=== PATIENT | male | born 1940 | race Caucasian/White ===

== ENCOUNTER 2025-02-12 00:59 | Inpatient (IN) | payer MEDICARE ==
[~2025-02-12] VITALS: Ht 177.8 cm; Wt 75.0 kg
[2025-02-12] VITALS (7 sets, daily range): BP systolic 99–151; BP diastolic 44–75
[2025-02-12 01:27] LABS: BASO # 0.0 10*3/uL (0.0-0.1); BASO % 0.2 % (0.0-1.0); EOS # 0.0 10*3/uL (0.0-0.4); EOS % 0.0 % (1.0-4.0); MEAN CELL VOLUME 97.6 fl (80.0-94.0); MEAN CORPUSCULAR HGB 30.9 pg (27.0-31.0); MEAN PLATELET VOLUME 7.9 fl (9.6-12.3); MONO # 1.3 10*3/uL (0.1-1.0); MONO % 7.0 % (3.0-9.0); NEUT # 15.5 10*3/uL (2.3-7.9); NEUT % 81.5 % (47.0-73.0); NUCLEATED RED BLOOD CELL 0.0 % (0.0-0.0); NUCLEATED RED BLOOD CELL 0.0 10*3/uL (0.0-0.0); PLATELET COUNT AUTOMATED 281 10*3/uL (130-400); RED CELL DISTRI WIDTH 13.3 % (0-14.5)
[2025-02-12 02:09] LABS: BUN 66 mg/dl (9-23); SGPT/ALT 26 U/L (5-49)
[2025-02-12 02:17] LABS: ETHYL ALCOHOL < 3.0 mg/dl (<3)
[2025-02-12] MEDS ORDERED: SODIUM CHLORIDE 0.9% 1,000 ML IV ONE ×2 (02:40→02:45)
[2025-02-12] MEDS ORDERED: Lidocaine Hydrochloride 10 ML SYR UR ONE ×2 (02:55→06:40)
[2025-02-12] MEDS ORDERED: AFRIN 15 ML15 M1 NAS (02:58)
[2025-02-12] MEDS ORDERED: ALLOPURINOL300 MG PO (02:58)
[2025-02-12] MEDS ORDERED: 'XANAX0.5 MG PO (02:59)
[2025-02-12] MEDS ORDERED: XANAX0.25 MG PO (02:59)
[2025-02-12] MEDS ORDERED: AMMONIUM LACTA227 GM T (03:00)
[2025-02-12] MEDS ORDERED: ASPIRIN81 M3 PO (03:01)
[2025-02-12] MEDS ORDERED: ARTIFICIAL TEAR1513 OP (03:01)
[2025-02-12] MEDS ORDERED: ANTIBIOTIC28.4 GM T (03:02)
[2025-02-12] MEDS ORDERED: BIOFREEZE89 ML T (03:03)
[2025-02-12] MEDS ORDERED: CALQUENCE100 M1 PO (03:04)
[2025-02-12] MEDS ORDERED: CALCIUM ANTACI300 MG PO (03:04)
[2025-02-12] MEDS ORDERED: ELIQUIS5 M1 PO (03:05)
[2025-02-12] MEDS ORDERED: CLOBETASOL PROP15 GM T (03:05)
[2025-02-12] MEDS ORDERED: FERROUS SULFAT324 M2 PO (03:07)
[2025-02-12] MEDS ORDERED: GLIPIZIDE2.5 M1 PO (03:08)
[2025-02-12] MEDS ORDERED: HYDROCORTISON28.4 G5 T (03:09)
[2025-02-12] MEDS ORDERED: MEMANTINE HCL10 MG PO (03:11)
[2025-02-12] MEDS ORDERED: ANTI-DIARRHEAL2 MG PO (03:11)
[2025-02-12] MEDS ORDERED: METFORMIN HCL1000 M1 PO (03:12)
[2025-02-12] MEDS ORDERED: MULTIVITAMIN1 EACH PO (03:13)
[2025-02-12] MEDS ORDERED: MUCINEX DM 30/61 TAB PO (03:13)
[2025-02-12] MEDS ORDERED: PRAZOSIN HCL1 MG PO (03:14)
[2025-02-12] MEDS ORDERED: RIVASTIGMINE TAR6 M1 PO (03:15)
[2025-02-12] MEDS ORDERED: Acetaminophen/Hydrocodone 5 MG/325 MG TABLET PO PRN (04:25)
[2025-02-12] MEDS ORDERED: Ondansetron Hydrochloride 4 MG/2 ML VIAL IV PRN (04:25)
[2025-02-12] MEDS ORDERED: BISACODYL 5 MG TAB PO PRN (04:25)
[2025-02-12] MEDS ORDERED: BISACODYL 10 MG SUPP R PRN (04:25)
[2025-02-12] MEDS ORDERED: ACETAMINOPHEN 650 MG SUPP R PRN (04:25)
[2025-02-12] MEDS ORDERED: ACETAMINOPHEN 325 MG TAB PO PRN (04:25)
[2025-02-12] MEDS ORDERED: SODIUM CHLORIDE 0.9% 1,000 ML IV SCH ×2 (04:30→06:55)
[2025-02-12 05:29] LABS: BUN 65.0 mg/dl (9-23); FREE T4 1.14 ng/dl (0.89-1.76); LDL CHOLESTEROL 49.0 mg/dL (9-159); SGPT/ALT 21.0 U/L (5-49)
[2025-02-12 06:25] LABS: BASO # 0.1 10*3/uL (0.0-0.1); BASO % 0.3 % (0.0-1.0); EOS # 0.0 10*3/uL (0.0-0.4); EOS % 0.1 % (1.0-4.0); MEAN CELL VOLUME 97.7 fl (80.0-94.0); MEAN CORPUSCULAR HGB 31.2 pg (27.0-31.0); MEAN PLATELET VOLUME 8.8 fl (9.6-12.3); MONO # 1.2 10*3/uL (0.1-1.0); MONO % 7.8 % (3.0-9.0); NEUT # 11.3 10*3/uL (2.3-7.9); NEUT % 74.3 % (47.0-73.0); NUCLEATED RED BLOOD CELL 0.0 % (0.0-0.0); NUCLEATED RED BLOOD CELL 0.0 10*3/uL (0.0-0.0); PLATELET COUNT AUTOMATED 288 10*3/uL (130-400); RED CELL DISTRI WIDTH 13.4 % (0-14.5)
[2025-02-12 07:01] LABS: VITAMIN D, 25-HYDROXY 39.2 ng/mL (30-100)
[2025-02-12 07:16] LABS: BILIRUBIN Negative (Negative); BLOOD Trace-Lysed (Negative); CLARITY Clear (Clear); COLOR Yellow (Yellow); KETONE Trace (Negative); LEUKO ESTERASE 1+ (Negative); NITRITE Negative (Negative); PH 5.0 (4.5-8.0); SPECIFIC GRAVITY 1.015 (1.001-1.030); UROBILINOGEN 0.2 E.U./dl (0.0-1.0)
[2025-02-12 07:18] LABS: URINE AMPHETAMINES Negative (1000ng/ml); URINE BARBITURATES Negative (200ng/ml); URINE BENZODIAZEPINES Positive (200ng/ml); URINE CANNABINOIDS (THC) Negative (50ng/ml); URINE COCAINE Negative (300ng/ml); URINE METHADONE Negative (300ng/ml); URINE OPIATES Negative (300ng/ml); URINE PHENCYCLIDINE Negative (25ng/ml)
[2025-02-12 07:41] LABS: BACTERIA 1+
[2025-02-12] MEDS ORDERED: ALPRAZolam 0.25 MG TAB PO SCH (10:00)
[2025-02-12] MEDS ORDERED: ASPIRIN ENTERIC COATED 81 MG TAB PO SCH (10:00)
[2025-02-12] MEDS ORDERED: APIXABAN 2.5 MG TABLET PO SCH (10:00)
[2025-02-12] MEDS ORDERED: FOAM BANDAGE 1 EACH BANDAGE T ONE (13:37)
[2025-02-12] MEDS ORDERED: FOAM BANDAGE 5X5 T ONE (13:37)
[2025-02-13] VITALS (7 sets, daily range): BP systolic 68–157; BP diastolic 44–79
[2025-02-13 06:13] LABS: BASO # 0.1 10*3/uL (0.0-0.1); BASO % 0.6 % (0.0-1.0); EOS # 0.1 10*3/uL (0.0-0.4); EOS % 0.8 % (1.0-4.0); MEAN CELL VOLUME 95.7 fl (80.0-94.0); MEAN CORPUSCULAR HGB 31.1 pg (27.0-31.0); MEAN PLATELET VOLUME 8.7 fl (9.6-12.3); MONO # 0.8 10*3/uL (0.1-1.0); MONO % 7.0 % (3.0-9.0); NEUT # 8.4 10*3/uL (2.3-7.9); NEUT % 70.9 % (47.0-73.0); NUCLEATED RED BLOOD CELL 0.0 % (0.0-0.0); NUCLEATED RED BLOOD CELL 0.0 10*3/uL (0.0-0.0); PLATELET COUNT AUTOMATED 276 10*3/uL (130-400); RED CELL DISTRI WIDTH 13.6 % (0-14.5)
[2025-02-13 06:43] LABS: BUN 53.0 mg/dl (9-23)
[2025-02-13] MEDS ORDERED: diazePAM 5 MG TAB PO SCH (09:35)
[2025-02-13] MEDS ORDERED: SODIUM CHLORIDE 0.9% 1,000 ML IV ONE (10:30)
[2025-02-13] MEDS ORDERED: SODIUM CHLORIDE 0.9% 1,000 ML IV SCH (10:30)
[2025-02-14] VITALS: BP 119/71
[2025-02-14] MEDS ORDERED: diazePAM 10 MG/2 ML SYR IV ONE (04:00)
[2025-02-14 05:58] LABS: BUN 45.0 mg/dl (9-23)
[2025-02-14 06:27] LABS: BASO # 0.1 10*3/uL (0.0-0.1); BASO % 0.6 % (0.0-1.0); EOS # 0.2 10*3/uL (0.0-0.4); EOS % 2.2 % (1.0-4.0); MEAN CELL VOLUME 98.6 fl (80.0-94.0); MEAN CORPUSCULAR HGB 31.4 pg (27.0-31.0); MEAN PLATELET VOLUME 8.7 fl (9.6-12.3); MONO # 0.8 10*3/uL (0.1-1.0); MONO % 8.0 % (3.0-9.0); NEUT # 6.7 10*3/uL (2.3-7.9); NEUT % 68.2 % (47.0-73.0); NUCLEATED RED BLOOD CELL 0.0 % (0.0-0.0); NUCLEATED RED BLOOD CELL 0.0 10*3/uL (0.0-0.0); PLATELET COUNT AUTOMATED 243 10*3/uL (130-400); RED CELL DISTRI WIDTH 13.8 % (0-14.5)
[2025-02-14 08:00] VITALS: BP 117/52
[2025-02-14 11:00] VITALS: BP 129/66
[2025-02-14 16:00] VITALS: BP 138/67
[2025-02-14] MEDS ORDERED: HALOPERIDOL 1 MG TAB PO PRN (18:25)
[2025-02-14 20:00] VITALS: BP 152/64
[2025-02-14] MEDS ORDERED: Cyclobenzaprine Hydrochlorid 10 MG TAB PO SCH (22:00)
[2025-02-15] VITALS: BP 152/73
[2025-02-15 04:51] LABS: BUN 38.0 mg/dl (9-23)
[2025-02-15 08:00] VITALS: BP 178/86
[2025-02-15 11:53] VITALS: BP 151/85
[2025-02-15] MEDS ORDERED: CYCLOBENZAPRINE10 MG PO (13:18)
[2025-02-15] MEDS ORDERED: FOSFOMYCIN TROME3 GM PO (13:18)
[2025-02-15] MEDS ORDERED: ELIQUIS2.5 M1 PO (13:18)
== END 2025-02-15 15:36 | DRG 871 ==
LOC: ED 00:59 → 4E 03:05 → EDHOLD 03:05 → 4E 04:26
PROVIDERS: Student in an Organized Health Care Education/Training Program; ADMIT Family Medicine; ATTEND Family Medicine
DX: A41.9 Sepsis, unspecified organism (principal); G93.41 Metabolic encephalopathy; N17.0 Acute kidney failure with tubular necrosis; N30.01 Acute cystitis with hematuria; E87.20 Acidosis, unspecified; E44.0 Moderate protein-calorie malnutrition; C85.90 Non-Hodgkin lymphoma, unspecified, unspecified site; C91.10 Chronic lymphocytic leukemia of B-cell type not having achieved remission; I48.21 Permanent atrial fibrillation; C18.9 Malignant neoplasm of colon, unspecified; N13.6 Pyonephrosis; Z66 Do not resuscitate; F03.90 Unspecified dementia, unspecified severity, without behavioral disturbance, psychotic disturbance, mood disturbance, and anxiety; R29.6 Repeated falls; F41.9 Anxiety disorder, unspecified; I10 Essential (primary) hypertension; R65.20 Severe sepsis without septic shock; D64.9 Anemia, unspecified; R74.01 Elevation of levels of liver transaminase levels; I25.118 Atherosclerotic heart disease of native coronary artery with other forms of angina pectoris; E11.42 Type 2 diabetes mellitus with diabetic polyneuropathy; C07 Malignant neoplasm of parotid gland; R33.9 Retention of urine, unspecified; S51.012A Laceration without foreign body of left elbow, initial encounter; S30.0XXA Contusion of lower back and pelvis, initial encounter; E11.65 Type 2 diabetes mellitus with hyperglycemia; E27.9 Disorder of adrenal gland, unspecified; N28.1 Cyst of kidney, acquired; Z90.49 Acquired absence of other specified parts of digestive tract; X58.XXXA Exposure to other specified factors, initial encounter; Y93.89 Activity, other specified; Y92.89 Other specified places as the place of occurrence of the external cause; Y99.8 Other external cause status

== ENCOUNTER 2025-02-15 12:03 | Inpatient (IN) | payer MEDICARE, OTHER ==
[~2025-02-15] VITALS: Ht 182 cm; Wt 74.6 kg
[~2025-02-15 12:03] MED LIST: 'XANAX0.5 MG PO; AFRIN 15 ML15 M1 NAS; ALLOPURINOL300 MG PO; AMMONIUM LACTA227 GM T; ANTI-DIARRHEAL2 MG PO; ANTIBIOTIC28.4 GM T; ARTIFICIAL TEAR1513 OP; ASPIRIN81 M3 PO; BIOFREEZE89 ML T; CALCIUM ANTACI300 MG PO; CALQUENCE100 M1 PO; CLOBETASOL PROP15 GM T; ELIQUIS5 M1 PO; FERROUS SULFAT324 M2 PO; GLIPIZIDE2.5 M1 PO; HYDROCORTISON28.4 G5 T; MEMANTINE HCL10 MG PO; METFORMIN HCL1000 M1 PO; MUCINEX DM 30/61 TAB PO; MULTIVITAMIN1 EACH PO; PRAZOSIN HCL1 MG PO; RIVASTIGMINE TAR6 M1 PO; XANAX0.25 MG PO
[2025-02-15] MEDS ORDERED: ACETAMINOPHEN 325 MG TAB PO PRN (12:35)
[2025-02-15] MEDS ORDERED: MG-AL HYDROXIDE/SIMETICONE 30 ML UDC PO PRN (12:35)
[2025-02-15] MEDS ORDERED: CYCLOBENZAPRINE10 MG PO (13:18)
[2025-02-15] MEDS ORDERED: FOSFOMYCIN TROME3 GM PO (13:18)
[2025-02-15] MEDS ORDERED: ELIQUIS2.5 M1 PO (13:18)
[2025-02-15] MEDS ORDERED: LORazepam 1 MG TAB PO PRN (14:25)
[2025-02-15] MEDS ORDERED: hydrOXYzine hydrochloride 50 MG/ML VIAL IM PRN (14:25)
[2025-02-15] MEDS ORDERED: Water, Sterile 10 ML VIAL IM PRN (14:25)
[2025-02-15 16:38] VITALS: BP 140/89
[2025-02-15] MEDS ORDERED: CALCIUM (TUMS) 500MG PO PRN (18:20)
[2025-02-15] MEDS ORDERED: Cyclobenzaprine Hydrochlorid 10 MG TAB PO PRN (18:30)
[2025-02-15] MEDS ORDERED: Fosfomycin Tromethamine 3 GM PDS PO SCH (18:30)
[2025-02-15 20:00] VITALS: BP 118/62
[2025-02-15] MEDS ORDERED: ALPRAZolam 0.25 MG TAB PO SCH (21:00)
[2025-02-15] MEDS ORDERED: Menthol/Zinc Oxide 4 GM THIN T SCH (21:00)
[2025-02-15] MEDS ORDERED: DIVALPROEX (DR) 250 MG TAB PO SCH (21:00)
[2025-02-15] MEDS ORDERED: APIXABAN 2.5 MG TABLET PO SCH (21:00)
[2025-02-15] MEDS ORDERED: Prazosin Hydrochloride 1 MG CAP PO SCH (21:00)
[2025-02-16] MEDS ORDERED: glipiZIDE 5 MG TAB PO SCH (09:00)
[2025-02-16] MEDS ORDERED: FERROUS SULFATE 325 MG TAB PO SCH (09:00)
[2025-02-16] MEDS ORDERED: MULTIVITAMIN 1 TAB TAB PO SCH (09:00)
[2025-02-16] MEDS ORDERED: ALLOPURINOL 300 MG TAB PO SCH (09:00)
[2025-02-16] MEDS ORDERED: risperiDONE 0.5 MG TAB PO SCH (09:00)
[2025-02-16] MEDS ORDERED: ASPIRIN ENTERIC COATED 81 MG TAB PO SCH (09:00)
[2025-02-16] MEDS ORDERED: ACALABRUTINIB MALEATE 100 MG PO SCH (10:00)
[2025-02-16 10:21] LABS: BASO # 0.1 10*3/uL (0.0-0.1); BASO % 0.5 % (0.0-1.0); EOS # 0.3 10*3/uL (0.0-0.4); EOS % 3.0 % (1.0-4.0); MEAN CELL VOLUME 96.0 fl (80.0-94.0); MEAN CORPUSCULAR HGB 31.5 pg (27.0-31.0); MEAN PLATELET VOLUME 7.9 fl (9.6-12.3); MONO # 0.8 10*3/uL (0.1-1.0); MONO % 7.5 % (3.0-9.0); NEUT # 6.5 10*3/uL (2.3-7.9); NEUT % 61.1 % (47.0-73.0); NUCLEATED RED BLOOD CELL 0.0 % (0.0-0.0); NUCLEATED RED BLOOD CELL 0.0 10*3/uL (0.0-0.0); PLATELET COUNT AUTOMATED 250 10*3/uL (130-400); RED CELL DISTRI WIDTH 13.7 % (0-14.5)
[2025-02-16 11:02] LABS: BUN 34.0 mg/dl (9-23); LDL CHOLESTEROL 70.0 mg/dL (9-159); SGPT/ALT 20.0 U/L (5-49); VITAMIN D, 25-HYDROXY 28.2 ng/mL (30-100)
[2025-02-16 20:00] VITALS: BP 156/85
[2025-02-16] MEDS ORDERED: FOAM BANDAGE 5X5 T ONE (20:23)
[2025-02-17 06:09] LABS: BUN 35.0 mg/dl (9-23)
[2025-02-17 07:56] VITALS: BP 148/81
[2025-02-17] MEDS ORDERED: Cholecalciferol 2,000 UNIT TABLET (50 MCG) PO SCH (09:30)
[2025-02-17 20:00] VITALS: BP 145/69
[2025-02-17] MEDS ORDERED: Memantine Hydrochloride 5 MG TAB PO SCH (21:00)
[2025-02-18 08:00] VITALS: BP 101/57
[2025-02-18] MEDS ORDERED: HALOPERIDOL 5 MG TAB PO ONE (09:25)
[2025-02-18 20:00] VITALS: BP 132/62
[2025-02-18] MEDS ORDERED: risperiDONE 1 MG TAB PO SCH (21:00)
[2025-02-19 06:44] LABS: BASO # 0.1 10*3/uL (0.0-0.1); BASO % 0.8 % (0.0-1.0); EOS # 0.4 10*3/uL (0.0-0.4); EOS % 4.5 % (1.0-4.0); MEAN CELL VOLUME 97.7 fl (80.0-94.0); MEAN CORPUSCULAR HGB 30.8 pg (27.0-31.0); MEAN PLATELET VOLUME 8.2 fl (9.6-12.3); MONO # 0.8 10*3/uL (0.1-1.0); MONO % 8.2 % (3.0-9.0); NEUT # 6.6 10*3/uL (2.3-7.9); NEUT % 68.4 % (47.0-73.0); NUCLEATED RED BLOOD CELL 0.0 % (0.0-0.0); NUCLEATED RED BLOOD CELL 0.0 10*3/uL (0.0-0.0); PLATELET COUNT AUTOMATED 334 10*3/uL (130-400); RED CELL DISTRI WIDTH 13.3 % (0-14.5)
[2025-02-19 07:03] LABS: BUN 31.0 mg/dl (9-23); SGPT/ALT 15.0 U/L (5-49); VALPROIC ACID (DEPAKENE) 19.7 ug/ml (50-100)
[2025-02-19 08:00] VITALS: BP 147/82
[2025-02-19] MEDS ORDERED: DIVALPROEX (DR) 500 MG TAB PO SCH (13:00)
[2025-02-19] MEDS ORDERED: Fosfomycin Tromethamine 3 GM PDS PO SCH (13:00)
[2025-02-19] MEDS ORDERED: DEXTROSE 50% 25 GM/50 ML VIAL IV PRN (17:10)
[2025-02-19] MEDS ORDERED: INSULIN LISPRO 1 UNIT/0.01 ML SQ SCH (22:00)
[2025-02-20 08:00] VITALS: BP 148/72
[2025-02-20 20:00] VITALS: BP 124/65
[2025-02-21 08:41] VITALS: BP 145/75
[2025-02-21 20:00] VITALS: BP 148/86
[2025-02-22 06:51] LABS: BUN 45.0 mg/dl (9-23)
[2025-02-22 08:03] VITALS: BP 134/75
[2025-02-22] MEDS ORDERED: METOPROLOL SUCCINATE XR 25 MG TAB PO SCH (09:00)
[2025-02-22] MEDS ORDERED: RIVASTIGMINE TAR6 M1 PO (18:11)
[2025-02-22] MEDS ORDERED: DIVALPROEX SOD500 MG PO (18:11)
[2025-02-22] MEDS ORDERED: MEMANTINE HCL10 MG PO (18:11)
[2025-02-22 20:00] VITALS: BP 133/69
[2025-02-23 06:00] LABS: BUN 47.0 mg/dl (9-23)
[2025-02-23 06:48] LABS: BILIRUBIN Negative (Negative); BLOOD Trace-Intact (Negative); CLARITY Clear (Clear); COLOR Yellow (Yellow); KETONE Trace (Negative); LEUKO ESTERASE 1+ (Negative); NITRITE Negative (Negative); PH 5.5 (4.5-8.0); SPECIFIC GRAVITY 1.015 (1.001-1.030); UROBILINOGEN 0.2 E.U./dl (0.0-1.0)
[2025-02-23 07:03] LABS: BACTERIA 1+; MUCOUS 1+
[2025-02-23 07:51] VITALS: BP 151/81
[2025-02-23] MEDS ORDERED: FOSFOMYCIN TROME3 GM PO (09:03)
== END 2025-02-23 10:35 | DRG 885 ==
LOC: 3N 12:03
PROVIDERS: Counselor Professional; Internal Medicine; Registered Nurse; ADMIT Psychiatry & Neurology Psychiatry; ATTEND Psychiatry & Neurology Psychiatry
PROC: GZHZZZZ Group Psychotherapy (ICD-10-PCS; principal; 2025-02-16)
PROC: GZ56ZZZ Individual Psychotherapy, Supportive (ICD-10-PCS; 2025-02-16)
DX: F33.3 Major depressive disorder, recurrent, severe with psychotic symptoms (principal); F05 Delirium due to known physiological condition; E43 Unspecified severe protein-calorie malnutrition; N17.0 Acute kidney failure with tubular necrosis; E11.65 Type 2 diabetes mellitus with hyperglycemia; A41.9 Sepsis, unspecified organism; G93.41 Metabolic encephalopathy; N30.01 Acute cystitis with hematuria; E87.20 Acidosis, unspecified; F03.911 Unspecified dementia, unspecified severity, with agitation; F03.94 Unspecified dementia, unspecified severity, with anxiety; F03.93 Unspecified dementia, unspecified severity, with mood disturbance; I48.91 Unspecified atrial fibrillation; I25.10 Atherosclerotic heart disease of native coronary artery without angina pectoris; Z66 Do not resuscitate; E27.9 Disorder of adrenal gland, unspecified; R74.01 Elevation of levels of liver transaminase levels; R33.9 Retention of urine, unspecified; E87.5 Hyperkalemia; D53.9 Nutritional anemia, unspecified; I10 Essential (primary) hypertension; S51.012A Laceration without foreign body of left elbow, initial encounter; E11.40 Type 2 diabetes mellitus with diabetic neuropathy, unspecified; Z90.49 Acquired absence of other specified parts of digestive tract; Z88.0 Allergy status to penicillin; Z91.013 Allergy to seafood; Z88.2 Allergy status to sulfonamides; Z85.6 Personal history of leukemia; Z85.038 Personal history of other malignant neoplasm of large intestine; Z88.8 Allergy status to other drugs, medicaments and biological substances; Z91.09 Other allergy status, other than to drugs and biological substances; W18.39XA Other fall on same level, initial encounter; Y93.89 Activity, other specified; Y92.89 Other specified places as the place of occurrence of the external cause; Y99.8 Other external cause status; Z68.22 Body mass index [BMI] 22.0-22.9, adult